=== PATIENT | male | born 1940 | race Asian ===

== ENCOUNTER 2019-01-30 01:47 | Inpatient (IN) | payer MEDICARE ==
[~2019-01-30] VITALS: Ht 167.6 cm; Wt 78.0 kg
[~2019-01-30 01:47] MED LIST: CARVEDILOL6.25 M1 PO; NOR10 PO; SIMVASTATIN20 M1 PO
[2019-01-30 01:54] VITALS: Ht 167.6 cm; Wt 78.0 kg
--- NOTE | 2019-01-30 03:11 | NUR ---
PT CAME IN FOR WORSENING COUGH X 4 DA
--- NOTE | 2019-01-30 03:13 | NUR ---
PT CAME IN FOR WORSENING COUGH X 4 DAYS WITH BLOATING AND CONSTIPATION. PT REPORTS GOING TO URGENT CARE 4 DAYS AGO IN WHICH HE WAS PRESCRIBED MEDICATIONS BUT COUGH GOT WORSE SO HE CAME TO THE ER. PT AWAKE, ALERT, RESPIRATIONS EVEN AND UNLABORED. SAFETY PRECAUTIONS IN PLACE
--- NOTE | 2019-01-30 03:29 | NUR ---
DR. ZAVALA AT BEDSIDE FOR MSE
--- NOTE | 2019-01-30 05:45 | NUR ---
PT REMAINS FREE FROM S/S OF DISTRESS. AWAKE, ALERT, RESPIRATIONS EVEN AND UNLABORED. SAFETY PRECAUTIONS IN PLACE
--- NOTE | 2019-01-30 06:12 | NUR ---
PER DR. ZAVALA, "PLACE THE NG TUBE ON LOW CONTINUOUS SUCTION." NG TUBE PLACED ON LOW CONTINUOUS SUCTION.
[2019-01-30] MEDS ORDERED: PRAVACHOL20 MG PO (06:44)
[2019-01-30 06:51] LABS: BASOPHIL % 0.4 % (0-2); PLATELET COUNT 216 x10^3mcL (130-400); RED CELL DISTRIBUTION WIDTH 12.4 % (11.5-14.5)
[2019-01-30 07:04] LABS: CALCIUM 9.7 mg/dL (8.5-10.1); CARBON DIOXIDE 23.6 mmol/L (21-32); CHLORIDE SERUM 104 mmol/L (98-107); CREATININE SERUM 1.2 mg/dL (0.7-1.3); GLUCOSE SERUM 101 mg/dL (74-106); POTASSIUM SERUM 3.4 mmol/L (3.5-5.1); SODIUM SERUM 141 mmol/L (136-145)
[2019-01-30 07:13] LABS: ALKALINE PHOSPHATASE 98 U/L (46-116); ALT/SGPT 80 U/L (16-63); AST/SGOT 50 U/L (15-37); TOTAL PROTEIN, SERUM 8.2 g/dL (6.4-8.2)
--- NOTE | 2019-01-30 07:19 | NUR ---
REPORT GIVEN TO KASSIDY COREA, ALL QUESTIONS AND CONCERNS WERE ADDRESSED
[2019-01-30 07:21] LABS: ALBUMIN 3.1 g/dL (3.4-5.0)
--- NOTE | 2019-01-30 07:30 | NUR ---
AGENCY DOCUMENTATION DONE BY Staff Name/Title - : KASSIDY NOLAND JR/[facility] User ID - : [id number] Agency Name - : [employer] Time Documented - From - : 699 To - : 1929
--- NOTE | 2019-01-30 07:45 | NUR ---
ASSUMED PATIENT CARE, CONCUR WITH PREVIOUS ASSESSMENTS. AWAITING TO GIVE REPORT TO UNIT RN AM SHIFT.
--- NOTE | 2019-01-30 08:04 | NUR ---
DISPO AND MEDICAL DECISION MAKING, INPATIENT ADMISSION FOR FURTHER MANAGEMENT. PATIENT CARE REPORT TO FLOOR RN, CONTINUITY OF CARE ENDORSED.
--- NOTE | 2019-01-30 08:40 | NUR ---
RECEIVED PATIENT VIA THANG NURSE AT BEDSIDE. PATIENT IS AMBULATORY WITH NO ASSIST, NO WEAKNESS NOTED. PATIENT IS A/O X4, DENIES GARCIA, NAUSEA. TELE MONITOR #[address], 1 DE[address] AV BLOCK , DENIES CHEST PAIN. BP:142/69 MAP:93 HR:68 LUNG SOUNDS DIMINISHED TO THE BASES, PATIENT ON ROOM AIR, PULSE OX 95%, DENIES SOB. ABDOMEN APPEARED FIRM/ DISTENTED, BOWEL SOUNDS ACTIVE X4, LAST BM 6 SOFT STOOL. NGT TO RIGHT NARE, ON LOW INTERMITTENT SUCTION. SKIN INTACT. D5NS INFUSING TO RAC 20G AT 80ML/HR, IV SITE CDI &PATENT, NO S/S OF INFILTRATION. CALL LIGHT WITHIN REACH, BED IN LOW POSITION, WILL CONTINUE TO MONITOR FOR CHANGES.
--- NOTE | 2019-01-30 08:40 | NUR ---
DR. SADLER AWARE WBC 12.8, K 3.4, AND TELE ADMIT STRIP SHOWED 1ST DEGREE BLOCK. NO FURTHER ORDER AT THIS TIME, WILL CONTINUE TO MONITOR.
[2019-01-30 10:28] VITALS: BP 142/69
--- NOTE | 2019-01-30 15:50 | NUR ---
DR SADLER GAVE TORB FOR BILATERAL MRSA NARES, WILL CARRY OUT ORDERS AT THIS TIME.
--- NOTE | 2019-01-30 17:20 | NUR ---
PATIENT RESTING IN BED, WATCHING TV. PATIENT DENEIS PAIN AT THIS TIME. NO ACUTE CHANGES THROUGH OUT SHIFT, PATIENT IS STABLE AT THIS TIME. RIGHT NARE NGT TO LOW INTERMITTENT SUCTION, TELE MONITOR IN PLACE. PATIENT DENIES SOB, ON ROOM AIR. D5NS INFUSING TO RAC AT 80ML/HR, IV SITE CDI & PATENT, NO S/S OF INFILTRATION. CALL LIGHT WITHIN REACH, BED IN LOW POSITION, WILL CONTINUE TO MONITOR.
--- NOTE | 2019-01-30 19:20 | NUR ---
REPORT RECEIVED FROM DAY SHIFT RN. PATIENT WAS SEEN AND IS RESTING COMFORTABLY IN BED. NO DISTRESS NOTED. BREATHING EVEN ON ROOM AIR. NO SOB OR RESP DISTRESS NOTED. DENIES CHEST PAIN. NO C/O PAIN. IV TO THE RAC, 20G, INFUSING D5NS WELL AT 80ML/HR. PATENT AND INTACT. NO REDNESS OR SWELLING NOTED. NPO DUE TO SBO AND NGT. PATIENT IS AWARE OF NPO STATUS. NGT TO THE RIGHT NARE ON LOW INTERMITTENT SUCTION. BROWN OUTPUT NOTED. COMFORT AND SAFETY MEAURES IN PLACE. BED IS LOCKED AND IN THE LOWEST POSTIION. SIDE RAILS UP X2. CALL LIGHT IS WITHIN REACH. WILL CONTINUE TO MONITOR.
[2019-01-30 20:47] VITALS: BP 174/92
--- NOTE | 2019-01-30 21:00 | NUR ---
HIGH BP 174/92 (116), HR 100. PRN LOPRESSOR IVP ADMINSITERED SLOWLY PRESCRIBED (SEE EMAR). WILL CONTINUE TO MONITOR AND REASSESS BP. NO DISTRESS NOTED. DAUGHTER, RAFAEL SAUER, AT BEDSIDE NOW. CALL LIGHT IS WITHIN REACH.
--- NOTE | 2019-01-30 21:50 | NUR ---
PATIENT IS FEELING AGITATED. BP AFTER LOPRESSOR 181/93, HR 85. ADMINISTERED ATIVAN PRESCRIBED (SEE EMAR). WILL CONTINUE TO MONITOR. NO DISTRESS NOTED. CALL LIGHT IS WITHIN REACH.
[2019-01-30 23:20] VITALS: BP 156/80
--- NOTE | 2019-01-30 23:20 | NUR ---
BP 156/80(102), HR 92. PATIENT REPORTS THAT HE HAS TO HAVE A BM. PATIENT DID NOT WANT TO USE THE BEDSIDE COMMODE AND IS REQUESTING TO THE BATHROOM. PATIENT DISCONNECTED FROM SUCTION. ASSISTED TO BATHROOM VIA WHEELCHAIR. PATIENT SAID HE HAD A BM THAT WAS ON THE WATERY SIDE. PATIENT ASSISTED BACK TO BED AND MADE COMFORTABLE. DENIES CHEST PAIN. NO C/O PAIN. BREATHING EVEN ON ROOM AIR. CONNECTED NGT BACK TO SUCTION. IVF INFUSING WELL. CALL LIGHT IS WITHIN REACH. WILL CONTINUE TO MONITOR.
--- NOTE | 2019-01-31 00:29 | NUR ---
PATIENT IS SITTING UP IN BED. NO DISTRESS NOTED. BREATHING EVEN ON ROOM AIR. IVF INFUSING WELL. DENIES PAIN. CALL LIGHT IS WITHIN REACH. WILL CONTINUE TO MONITOR.
--- NOTE | 2019-01-31 01:20 | NUR ---
C/O 10/10 PAIN IN HIS FEET BIALTERALLY DUE TO HIS GOUT. PRN MORPHINE WAS ADMINISTERED PRESCRIBED. EDUCATED PATIENT ON COMMON SIDE EFFECTS AND HE VERBALIZED UNDERSTANDING. WILL CONTINUE TO MONITOR AND REASSESS PAIN LEVEL. CALL LIGHT IS WITHIN REACH.
[2019-01-31] MEDS ORDERED: INDOMETHACIN50 MG PO (02:39)
--- NOTE | 2019-01-31 04:28 | NUR ---
C/O 10/10 PAIN IN HIS FEET BILATERALLY DUE TO HIS GOUT. PRN MORPHINE WAS ADMINISTERED PRESCRIBED. WILL CONTINUE TO MONITOR AND REASSESS PAIN LEVEL. CALL LIGHT IS WITHIN REACH
--- NOTE | 2019-01-31 05:57 | NUR ---
PATIENT SLEPT IN SHORT INTERVALS THROUGHOUT THE NIGHT. NO ACUTE CHANGES NOTED. NO DISTRESS NOTED. BREATHING EVEN ON ROOM AIR. DENIES CHEST PAIN. C/O PAIN X2 THROUGHOUT THE NIGHT DUE TO GOUT IN HIS BIG TOE BILATERALLLY. MORPHINE HAD GOOD RELIEF. IV TO THE RAC INFUSING WELL. PATENT AND INTACT. NO REDNESS OR SWELLING NOTED. RIGHT NARE NGT ON LOW INTERMITTENT SUCTION. OUTPUT 100ML NOTED OF BROWNISH COLOR. ALL NEEDS AND CONCERNS ADDRESSED. SAFETY MEASURES IN PLACE. CALL LIGHT IS WITHIN REACH. WILL ENDORSE CARE TO ONCOMING RN
[2019-01-31 06:01] VITALS: BP 133/62
[2019-01-31 06:07] LABS: BASOPHIL % 0.3 % (0-2); PLATELET COUNT 232 x10^3mcL (130-400); RED CELL DISTRIBUTION WIDTH 12.3 % (11.5-14.5)
--- NOTE | 2019-01-31 06:18 | NUR ---
SPOKE WITH DR SADLER ABOUT PATIENT'S GOUT AND IF WE CAN CONTINUE INDOMETHCIN (HOME MED) AND IF HE WANTS TO PUT IN ORDERS FOR A KUB FOR TODAY. DR SADLER SAID PATIENT CANNOT HAVE PO MEDS AT THIS TIME. NO NEW ORDERS. WILL RELAY INFORMATION TO PATIENT.
[2019-01-31 06:32] LABS: ALKALINE PHOSPHATASE 89 U/L (46-116); ALT/SGPT 71 U/L (16-63); AST/SGOT 42 U/L (15-37); BILIRUBIN TOTAL 0.32 mg/dL (0.20-1.00); CALCIUM 9.3 mg/dL (8.5-10.1); CHLORIDE SERUM 104 mmol/L (98-107); CREATININE SERUM 1.1 mg/dL (0.7-1.3); GLUCOSE SERUM 119 mg/dL (74-106); MAGNESIUM 1.9 mg/dL (1.8-2.4); POTASSIUM SERUM 3.6 mmol/L (3.5-5.1); SODIUM SERUM 143 mmol/L (136-145); TOTAL PROTEIN, SERUM 7.2 g/dL (6.4-8.2)
[2019-01-31 06:43] LABS: ALBUMIN 2.8 g/dL (3.4-5.0)
--- NOTE | 2019-01-31 07:05 | NUR ---
RECIEVED PT RESTING IN BED WITH NO C/O PAIN, DISTRESS, OR SOB. PT A/O X4. TELE MONITOR #21 CONNECTED TO PT. D5NS 80ML/HR RUNNING IN RAC 20G, IV INTACT AND PATENT WITH NO REDNESS OR INFLAMMATION. SAFETY PRECAUTIONS IN PLACE, CALL LIGHT WITHIN REACH, WILL MONITOR.
--- NOTE | 2019-01-31 08:23 | NUR ---
DR. SADLER AT [facility] INQUIRED REGARDING WHO WAS CONSULT FOR SX EVALUATION. SINCE IT WAS MENTION ON HIS PROGRESS NOTE BUT NOT SEEN ON HIS CONSULT. MD STATED THAT HE WAS TOLD BY ER DOCTOR THAT SX CONSULT WAS CALLED AND HAD BEEN CONSULTED BY ER DOCTOR. MD NOT AWARE OF WHO THEY CALLED. ER PHYSICIAN NOTE DID NOT INCLUDE WHO WAS CONSULTED. ER CALLED AND WAS MADE AWARE THAT DR. AYALA WAS ONCALL YESTERDAY. BUT THEY COULD NOT COMFIRM IF SHE WAS CALLED BY ER DOC. WILL FORWARD INFORMATION TO DR. SADLER.
[2019-01-31 09:52] VITALS: BP 155/70
--- NOTE | 2019-01-31 10:11 | NUR ---
PT C/O 02/08 BILAT BIG TOE GOUT PAIN. MEDICATED WITH TORODOL PER EMAR, WILL REASSESS.
--- NOTE | 2019-01-31 11:08 | NUR ---
PT DAUGHTER BROUGHT IN HOME MEDS BUT PER DR SADLER PT IS NPO FOR EVERYTHING. NO PO MEDICATIONS ALLOWED. DAUGHTER INFORMED AND VERBALIZES UNDERSTANDING.
[2019-01-31 13:11] VITALS: BP 152/72
--- NOTE | 2019-01-31 14:00 | NUR ---
PT RESTING COMFORTABLY IN BED WITH NO C/O PAIN, DISTRESS, OR SOB. FAMILY AT BEDSIDE. SAFETY PRECAUTIONS IN PLACE, CALL LIGHT WITHIN RECH, WILL MONITOR.
--- NOTE | 2019-01-31 16:24 | NUR ---
PT C/O 01/09 BILAT FOOR PAIN, MEDICATED WITH TORADOL PER EMAR, WILL REASSESS.
--- NOTE | 2019-01-31 17:45 | NUR ---
PT RHYTHM READING ON MONITOR SINUS RHYTHM WITH SINUS ARYTHMIA AT [id number]. DR SADLER NOTIFIED. NO NEW ORDERS AT THIS TIME.
--- NOTE | 2019-01-31 18:15 | NUR ---
PT VS: BP 160/80, MAP 95, HR 85, RR 20, AND TEMP 100.6. COOLING MEASURES APPLIED AND DR DELANEY NOTIFIED. NEW ORDERS (RBTO) FOR BLOOD CULTURE, CBC PANEL, AND ABT ZOSYN 3.37 G IV Q 8 HOURS X 10 DAYS. WILL CARRY OUT ORDERS. CHARGE NOTIFIED. PT REPORTS NO SOB OR DISTRESS AT THIS TIME.
[2019-01-31 18:16] VITALS: BP 160/80
--- NOTE | 2019-01-31 18:51 | NUR ---
PT STABLE AT THIS TIME. NO DISTRESS, PAIN, OR SOB REPORTED. FAMILY AT BEDSIDE. ALL CARES TOLERATED WELL. IV INTACT AND PATENT WITH NO REDNESS OR INFLAMMATION. D5NS RUNNING AT 80ML/HR. NGT IN LOW SUCTION MODE AND IN PLACE. SAFETY PRECAUTINS IN PLACE, CALL LIGHT WITHIN REACH, WILL ENDORSE TO NIGHT NURSE.
[2019-01-31 19:04] LABS: BASOPHIL % 0.4 % (0-2); PLATELET COUNT 244 x10^3mcL (130-400)
--- NOTE | 2019-01-31 19:20 | NUR ---
REPORT RECEIVED FROM DAY SHIFT RN. PATIENT WAS SEEN AND IS RESTING COMFORTABLY IN BED. GRANDDAUGHTER AT BEDSIDE. NO DISTRESS NOTED. BREATHING EVEN ON ROOM AIR. NO SOB OR RESP DISTRESS NOTED. DENIES PAIN AT THIS TIME. DENIES CHEST PAIN/PRESSURE. IV TO THE RAC INFUSING D5NS WELL AT 80ML/HR. PATENT AND INTACT. NO REDNESS OR SWELLING NOTED. NGT TO THE RIGHT NARE ON LOW INTERMITTENT SUCTION. BROWN OUTPUT NOTED. COMFORT AND SAFETY MEASURES IN PLACE. BED IS LOCKED AND IN THE LOWEST POSITION. SIDE RAILS UP X2. CALL LIGHT IS WITHIN REACH. WILL CONTINUE TO MONITOR.
[2019-01-31 21:33] VITALS: BP 144/80
--- NOTE | 2019-01-31 22:27 | NUR ---
REIENFORCED PATIENT'S NGT. TAPE WAS COMING LOOSE. PATIENT IS ALSO C/O 10/10 IN HIS FEET DUE TO HIS GOUT. PRN TORADOL WAS ADMINISTERED PRESCRIBED. NO DISTRESS NOTED. BREATHING EVEN ON ROOM AIR. IVF INFUSING WELL. CALL LIGHT IS WITHIN REACH. WILL CONTINUE TO MONITOR AND REASSESS PAIN LEVEL.
--- NOTE | 2019-02-01 01:16 | NUR ---
PATIENT RESTING IN BED WITH EYES CLOSED. NO DISTRESS NOTED. BREATHING EVEN ON ROOM AIR. NGT TO RIGHT NARE ON LOW INTERMITTENT SUCTION. IVF INFUSING WELL. NO S/S OF PAIN INDICATED. SAFETY MEASURES IN PLACE. CALL LIGHT IS WITHIN REACH. WILL CONTINUE TO MONITOR.
[2019-02-01 05:54] VITALS: BP 157/80
[2019-02-01 06:12] LABS: BASOPHIL % 0.3 % (0-2); PLATELET COUNT 247 x10^3mcL (130-400); RED CELL DISTRIBUTION WIDTH 12.3 % (11.5-14.5)
--- NOTE | 2019-02-01 06:21 | NUR ---
C/O 10/10 PAIN IN HER FEET. PRN TORADOL WAS ADMINISTERED PRESCRIBED. WILL CONTINUE TO MONITOR AND REASSESS PAIN LEVEL. PATIENT SLEPT IN LONG INTERVALS THROUGHOUT THE NIGHT. NO ACUTE CHANGES NOTED. NGT TO RIGHT NARE TO LOW INTERMITTEN SUCTION. 50ML OUTPUT NOTE. IV TO THE RAC. PATENT AND INTACT. NO REDNESS TO SWELLING NOTED. SAFETY MEASURES IN PLACE. CALL LIGHT WITHIN REACH. WILL ENDORSE CARE TO DAY SHIFT RN.
[2019-02-01 06:31] LABS: ALKALINE PHOSPHATASE 84 U/L (46-116); ALT/SGPT 74 U/L (16-63); AST/SGOT 48 U/L (15-37); BILIRUBIN TOTAL 0.5 mg/dL (0.20-1.00); CALCIUM 8.7 mg/dL (8.5-10.1); CARBON DIOXIDE 28.3 mmol/L (21-32); CHLORIDE SERUM 106 mmol/L (98-107); CREATININE SERUM 1.2 mg/dL (0.7-1.3); GLUCOSE SERUM 127 mg/dL (74-106); POTASSIUM SERUM 3.3 mmol/L (3.5-5.1); SODIUM SERUM 141 mmol/L (136-145); TOTAL PROTEIN, SERUM 6.9 g/dL (6.4-8.2)
[2019-02-01 06:56] LABS: ALBUMIN 2.5 g/dL (3.4-5.0)
--- NOTE | 2019-02-01 07:30 | NUR ---
RECEIVED PT FROM FLUE BLOWER RN. Ashtyn/FILEMON. TELE#21. DENIES CHEST PAIN/PRESSURE. RESPIRATIONS EQUAL AND UNLABORED ON RA. DENIES SOB. NG TUBE SECURED TO RT NARE ON LOW INTERMITTENT SUCTION. PT DENIES N/V AT THIS TIME. PT DENIES ANY ABODMINAL PAIN. PT STATES PAIN IN BLE IS TOLERABLE SINCE RECEIVING TORADOL. IV PATENT AND INFUSING TO RAC. NO REDNESS OR SWELLING NOTED. WILL CONTINUE TO MONITOR. CALL LIGHT IN REACH. BED IN LOWEST POSITION.
[2019-02-01 08:38] VITALS: BP 148/68
--- NOTE | 2019-02-01 08:48 | NUR ---
DR. SADLER AT BEDSIDE PER DR. SADLER CONTINUE PT WITH NG TUBE TO LOW INTERMITTENT SUCTION.
--- NOTE | 2019-02-01 09:23 | NUR ---
PT SITTING UP IN BED. NO ACUTE RESP DISTRESS NOTED ON RA. PT DENIES ANY PAIN AT THIS TIME. PT STATES PAIN TO HIS FEET HAS GOTTEN BETTER SINCE RECEIVING TORADOL. IV PATENT AND INFUSING TO RAC. NO REDNESS OR SWELLING NOTED. NG TUBE TO RT NARE INTACT TO LOW INTERMITTENT SUCTION. WILL CONTINUE TO MONITOR. CALL LIGHT IN REACH. BED IN LOWEST POSITION,
--- NOTE | 2019-02-01 11:43 | NUR ---
PT SITTING UP IN BED. NO ACUTE RESP DISTRESS NOTED ON RA. PT DENIES ANY ABDOMINAL PAIN AT THIS TIME. IV TO RAC PATETN AND INFUSING. NO REDNESS OR SWELLING NOTED. FAMILY AT BEDSIDE. WILL CONTINUE TO MONITOR. CALL LIGHT IN REACH. BED IN LOWEST POSITION.
--- NOTE | 2019-02-01 11:50 | NUR ---
DR. AYALA AT BEDSIDE. PER DR. AYALA CONTINUE TO MONITOR, CONTINUE NG TUBE TO LOW INTERMITTENT SUCTION.
[2019-02-01 12:26] VITALS: BP 125/74
[2019-02-01 16:55] VITALS: BP 145/73
--- NOTE | 2019-02-01 18:31 | NUR ---
PT SITTING UP IN BED. RESPIRATIONS EQUAL AND UNLABORED ON RA. DENIES SOB. TELE#21. DENIES CHEST PAIN/PRESSURE. NG TUBE TO RT NARE ON LOW INTERMITTENT SUCTION. TOTAL OF 100 ML OUTPUT DURING SHIFT NOTED. IV TO RAC PATENT AND INFUSING. NO REDNESS OR SWELLING NOTED. PT DENIES ANY PAIN AT THIS TIME. WILL ENDORSE TO GENERAL ACCOUNTING CLERK RN. CALL LIGHT IN REACH. BED IN LOWEST POSITION.
[2019-02-01 19:40] VITALS: BP 167/80
--- NOTE | 2019-02-01 19:50 | NUR ---
RECEIVED PT FROM ANMOL PINON. PT IS A/O X4. PT IS ON TELE #21 WITH SR HR 78. PT DENIES ANY CHEST PAIN OR SOB AT THIS TIME. PT HAS PALPABLE PULSES, NO EDEMA NOTED. PT LUNG SOUNDS ARE DIMINISHED BILATERALLY ON RA. PT LAST BM WAS 7/, ABD IS DISTENDED AND SOFT. PT HAS NGT R NARES ON LIS. PT IS AMHULATORY WITH ASSIST, MILD BLE WEAKNESS. PT DENIES ANY PAIN AT THIS TIME. PT IV TO RAC INFUSING WELL. CALL LIGHT WITHIN REACH, WILL CONTINUE TO MONITOR.
--- NOTE | 2019-02-01 20:20 | NUR ---
PT WAS ASSISTED TO RESTROOM, PT STATES THAT HE PASSED GAS AND HAD A SMALL LOOSE STOOL. PT WAS CONNECTED BACK ON NGT LIS. WILL CONTINUE TO MONITOR.
--- NOTE | 2019-02-01 20:56 | NUR ---
PT C/ OF ANXIETY. PT RECIEVED ATIVAX X1. WILL CONTINUE TO MONTIOR CALL LIGHT WITHIN REACH.
--- NOTE | 2019-02-02 00:10 | NUR ---
PT ASLEEP IN BED, BREATHING EVEN AND UNLABORED. NGT IN PLACE ON LIS. WILL CONTINUE TO MONITOR, CALL LIGHT WITHIN REACH.
[2019-02-02 05:04] VITALS: BP 151/80
[2019-02-02 06:10] LABS: PLATELET COUNT 275 x10^3mcL (130-400); RED CELL DISTRIBUTION WIDTH 12.3 % (11.5-14.5)
--- NOTE | 2019-02-02 06:22 | NUR ---
PT SLEPT ON AND OFF THROUGH OUT THE NIGHT. PT ON TELE 21 SR. PT DENIES ANY CHEST PAIN OR SOB AT THIS TIME. PT C/O OF PAIN AND ANXIETY, GAVE ATIVAN X2 AND TORODAL X1. PT HAS NGT TUBE TO RIGHT NARES, OUTPUT 50CC COLOR DARK GREEN. PT IV TO [facility]. PT WAS COOPERATIVE WITH NURSING CARE. PT WAS ABLE TO PASS GAS AND HAVE A SMALL BM LAST NIGHT 02/01. NO ACUTE CHANGES NOTED.
[2019-02-02 06:31] LABS: ALKALINE PHOSPHATASE 81 U/L (46-116); ALT/SGPT 73 U/L (16-63); AST/SGOT 45 U/L (15-37); BILIRUBIN TOTAL 0.39 mg/dL (0.20-1.00); CALCIUM 9.1 mg/dL (8.5-10.1); CARBON DIOXIDE 23.9 mmol/L (21-32); CHLORIDE SERUM 107 mmol/L (98-107); CREATININE SERUM 1.2 mg/dL (0.7-1.3); GLUCOSE SERUM 108 mg/dL (74-106); MAGNESIUM 2.2 mg/dL (1.8-2.4); POTASSIUM SERUM 3.6 mmol/L (3.5-5.1); SODIUM SERUM 143 mmol/L (136-145); TOTAL PROTEIN, SERUM 7.3 g/dL (6.4-8.2)
[2019-02-02 06:34] LABS: ALBUMIN 2.4 g/dL (3.4-5.0)
--- NOTE | 2019-02-02 07:20 | NUR ---
RECEIVED PT FROM CONTROL AREA OPERATOR RN. Ashtyn/FILEMON. TELE#21. RESPIRATIONS EQUAL AND UNLABORED ON RA. DENIES SOB. NG TUBE TO RT NARE SECURED ON LOW INTERMITTENT SUCTION. PT HAD BM LAST NIGHT. PT STATES HIS STOMACH FEELS MUCH BETTER. PT C/O PAIN TO HIS FEET BILATERALLY. IV TO RAC PATENT AND INFUSING. NO REDNESS OR SWELLING NOTED. WILL CONTINUE TO MONITOR. CALL LIGHT IN REACH. BED IN LOWEST POSITION.
[2019-02-02 09:03] LABS: MONOCYTE 10 % (0-7); SEGMENTED NEUTROPHILS 70 % (37-75); rbc morphology (normal/abnorm) NORMAL (NORMAL)
[2019-02-02 09:04] LABS: PLATELET MORPHOLOGY PLATELETS NORMAL
[2019-02-02 09:06] VITALS: BP 151/76
--- NOTE | 2019-02-02 09:13 | NUR ---
PT SITTING UP IN BED. NO ACUTE RESP DISTRESS NOTED ON RA. NG TUBE TO RT NARE ON LOW INTERMITTENT SUCTION. PT C/O PAIN 02/08 TO GARCIA AND TO BILATERAL FEET. DR. SADLER AT BEDSIDE PER DR. SADLER PT OKAY TO START PO MEDS AND CLEAR LIQUID DIET. PER DR. SADLER WILL SEE WHAT DR. AYALA RECOMMENDS BEFORE TAKING OUT NG TUBE. WILL CONTINUE TO MONITOR. CALL LIGHT IN REACH. BED IN LOWEST POSITION.
--- NOTE | 2019-02-02 09:56 | NUR ---
SPOKE WITH DR. JAMIE MONSALVE TO REMOVE NG TUBE.
--- NOTE | 2019-02-02 10:25 | NUR ---
PT SITTING UP AT BEDSIDE. RECEIVED ORDERS TO D/C NG TUBE. NG TUBE REMOVED. NO PROBLEMS ENCOUNTERED. PT STATES PAIN TO FEET AND GARCIA HAS IMPROVED. INSTRUCTED PT TO TAKE SMALL SIPS OF WATER AND SMALL AMOUNTS OF CLEAR LIQUIDS WITH LUNCH. PT VERBALIZED UNDERSTANDING. WILL CONTINUE TO MONITOR. CALL LIGHT IN REACH. BED IN LOWEST POSITION.
[2019-02-02 11:55] VITALS: BP 116/80
--- NOTE | 2019-02-02 13:06 | NUR ---
PT SITTING UP IN BED. PT ATE LUNCH AND TOLERATED WELL. PT DENIES ANY N/V AT THIS TIME. PT DENIES ANY ABDOMINAL PAIN AT THIS TIME. WILL CONTINUE TO MONITOR. CALL LIGHT IN REACH. BED IN LOWEST POSITION.
[2019-02-02 16:49] VITALS: BP 143/72
--- NOTE | 2019-02-02 18:41 | NUR ---
PT SITTING UP IN BED. NO ACUTE RESP DISTRESS NOTED ON RA. DENIES SOB. PT TOLERATED FULL LIQUID DIET WELL. DENIES ANY N/V. PT DENIES ANY ABDOMINAL PAIN AT THIS TIME. IV TO RAC SALINE LOCKED. NO REDNESS OR SWELLING NOTED. WILL ENDORSE TO PIPE ORGAN MECHANIC RN. CALL LIGHT IN REACH. BED IN LOWEST POSITION.
--- NOTE | 2019-02-02 19:50 | NUR ---
RECIEVED PT FROM ANMOL PINON. PT IS A/O X4. PT ON TELE #21 SR HR 73. PT DENIES ANY CHEST PAIN OR SOB AT THIS TIME. PT PULSES ARE PALPABLE, NO EDEMA NOTED. PT LUNG SOUNDS DIMINISHED BILATERALLY ON RA. BREATHING EVEN AND INTACT. PT NGT DC TODAY 02/02. PT DENIES ANY ABD PAIN AT THIS TIME. PT HAS HAD 2 BM TODAY. PT DENIES ANY N/V AT THIS TIME. PT ABD SOFT AND ROUND. PT HAS MILD BLE WEAKNESS, ABLE TO AMBULATE. PT IV TO RAC [facility]. CALL LIGHT WITHIN REACH, WILL CONT TO MONITOR.
[2019-02-02 20:38] VITALS: BP 152/72
--- NOTE | 2019-02-02 20:58 | NUR ---
PT C/ OF AGITATION/ANXIETY. GAVE ATIVAN X1 PER MD ORDER. WILL CONTINUE TO MONITOR, PT CALL LIGHT WITHIN REACH.
--- NOTE | 2019-02-03 00:16 | NUR ---
PT ASLEEP IN BED. NO RESP DISTRESS NOTED. PT BREATHING EVEN AND UNLABORED. PT CALL LIGHT WITHIN REACH.
[2019-02-03 05:36] VITALS: BP 144/70
[2019-02-03 05:53] LABS: BASOPHIL % 0.3 % (0-2); PLATELET COUNT 316 x10^3mcL (130-400); RED CELL DISTRIBUTION WIDTH 12.5 % (11.5-14.5)
--- NOTE | 2019-02-03 06:20 | NUR ---
PT SLEPT ON AND OFF THROUGH OUT THE NIGHT. PT ON TELE 21 SR. PT DENIES ANY CHEST PAIN OR SOB AT THIS TIME. PT C/O OF ANXIETY, GAVE ATIVAN X1. PT IV TO [facility]. PT WAS COOPERATIVE WITH NURSING CARE. PT WAS ABLE TO PASS GAS AND HAD 2 BM. PT DENIES ANY ABD PAIN. NO ACUTE CHANGES NOTED. WILL ENDORSE CARE TO AM NURSE.
[2019-02-03 06:55] LABS: ALKALINE PHOSPHATASE 78 U/L (46-116); ALT/SGPT 86 U/L (16-63); AST/SGOT 42 U/L (15-37); BILIRUBIN TOTAL 0.4 mg/dL (0.20-1.00); CALCIUM 9.5 mg/dL (8.5-10.1); CARBON DIOXIDE 25.7 mmol/L (21-32); CHLORIDE SERUM 105 mmol/L (98-107); CREATININE SERUM 1.4 mg/dL (0.7-1.3); GLUCOSE SERUM 109 mg/dL (74-106); MAGNESIUM 2.1 mg/dL (1.8-2.4); POTASSIUM SERUM 3.7 mmol/L (3.5-5.1); SODIUM SERUM 143 mmol/L (136-145); TOTAL PROTEIN, SERUM 7.5 g/dL (6.4-8.2)
[2019-02-03 06:59] LABS: ALBUMIN 2.7 g/dL (3.4-5.0)
--- NOTE | 2019-02-03 07:30 | NUR ---
RECEIVED PT FROM BUSINESS LEADER. PT AWAKE, ALERT A/OX4. PT ON ROOM AIR WITH NO RESP DISTRESS NOTED. LUNG SOUNDS DIMINSHED. PT ON TELE 21, DENIES CHEST PAIN. PERIPHERAL PULSES PALPABLE, NO EDEMA NOTED. IV ACCESS RAC C/D/I. ACTIVE BOWEL SOUNDS NOTED. PT REPORTS BM YESTERDAY, DENIES PAIN. PT ABDOMEN ROUND AND SOFT. GENERALIZED WEAKNESS NOTED. SAFETY MEASURES IN PLACE, BED LOW AND LOCKED. CALL LIGHT WITHIN REACH.
[2019-02-03 08:17] VITALS: BP 148/81
[2019-02-03 10:20] VITALS: BP 148/81
--- NOTE | 2019-02-03 10:35 | NUR ---
DISCHARGE INSTRUCTIONS/EDUCATION PROVIDED TO PATIENT. PT TO FOLLOW UP WITH PCP WITH APPT PROVIDED. PT VERBALIZES UNDERSTANDING. IV ACCESS REMOVED WITH CATHETER INTACT. NO REDNESS, SWELLING OR BLEEDING NOTED. TELE REMOVED AND GIVEN TO TECH. FAMILY AT BEDSIDE, PT TAKEN BY WHEELCHAIR TO [employer]IVATE [employer] FOR DISCHARGE. NO DISTRESS OR DISCOMFORT NOTED. SAFETY MAINTAINED.
== END 2019-02-03 10:38 | disposition home or self-care (01) | DRG 388 ==
LOC: ED 01:47 → DU 05:33
PROVIDERS: Emergency Medicine; Internal Medicine Pulmonary Disease; ADMIT Internal Medicine Pulmonary Disease
DX: K56.600 Partial intestinal obstruction, unspecified as to cause (principal); J18.9 Pneumonia, unspecified organism; I10 Essential (primary) hypertension; E78.5 Hyperlipidemia, unspecified; M10.9 Gout, unspecified; Z68.27 Body mass index [BMI] 27.0-27.9, adult; Z95.1 Presence of aortocoronary bypass graft; Z86.73 Personal history of transient ischemic attack (TIA), and cerebral infarction without residual deficits
CPT/HCPCS: G0378; J0456; J0696; J1885; J2060; J2270; J2543; J3480; J3490; J7030; J7042; J7050; J7620; Q0092